=== PATIENT | female | born 1950 ===

== ENCOUNTER → 2020-06-27 08:31 | Outpatient (BNVA) | payer MEDICARE, SELFPAY | PROVIDERS: Visit Provider Hospitalist | DX: G47.33 Obstructive sleep apnea (adult) (pediatric) (principal); Z99.89 Dependence on other enabling machines and devices | CPT/HCPCS: 99212 ==

== ENCOUNTER → 2021-02-19 11:06 | Outpatient (BNVA) | payer MEDICARE, SELFPAY | PROVIDERS: PCP Family Medicine; Visit Provider Hospitalist | DX: G47.33 Obstructive sleep apnea (adult) (pediatric) (principal); Z99.89 Dependence on other enabling machines and devices | CPT/HCPCS: 99212 ==

== ENCOUNTER → 2021-06-05 10:36 | Outpatient (BNVA) | payer MEDICARE, SELFPAY | PROVIDERS: PCP Family Medicine; Visit Provider Hospitalist | DX: G47.33 Obstructive sleep apnea (adult) (pediatric) (principal); R68.2 Dry mouth, unspecified; Z99.89 Dependence on other enabling machines and devices | CPT/HCPCS: 99212 ==

== ENCOUNTER → 2021-12-10 10:20 | Outpatient (BNVA) | payer MEDICARE, SELFPAY | PROVIDERS: PCP Family Medicine; Visit Provider Hospitalist | DX: G47.33 Obstructive sleep apnea (adult) (pediatric) (principal); R68.2 Dry mouth, unspecified; Z99.89 Dependence on other enabling machines and devices | CPT/HCPCS: 99212 ==

== ENCOUNTER 2023-10-12 09:05 | Outpatient (AMB) | payer MEDICARE, SELFPAY ==
--- NOTE | 2023-10-12 09:12 | A.OFFVIS_ITS ---
Vital Signs 10/12/23 09:13 Height 5 ft 2 in Weight 190 lb BMI 34.7 Pulse 69 Pulse Source Pulse Oximeter Pulse Oximetry (%) 96 Oxygen Delivery Method Room Air Intake Visit Reasons: brando Scalp Treatment Specialist Required: No Allergies No Known Allergies Allergy (Verified 10/12/23 09:15) HPI Comments Details: The patient is a 72-year-old woman with a known history of obstructive sleep apnea. She has a very adherent to her CPAP therapy. The CPAP therapy continues to be effective in beneficial. She does use the nasal pillows. Sometimes a duly care but it does not bother her. Her his AHI is down to 0.9. Her average pressure is approximately 13. Currently her is PAP therapy set up 8-16. Therefore, I will increase the pressure up to 10 to be closer to her therapeutic window. Otherwise she is tolerating the CPAP very well. Patient denies any respiratory issues at this time. 06/05/2021 The patient is here for a pulmonary follow up visit. The patient finally received her new APAP, Airsense 11 8-16. She is using nasal pillows with chin strap. But complaing of a dry mouth. Moderate in severity. Very uncomfortable. She did get a new chin strap but not helpful. I did download the APAP and AHI 1-2. BUt avg pressure was 16cm. Therefore, I recommended a full face mask. She is going to use it. I also adjusted her pressures 8-18. Breathing has been ok. No coughing or shortness of breath. 12/10/2021 the patient is here for a pulmonary follow-up visit. Overall the patient is doing well. She did try the fullface mask but she did not tolerated. She did better with the P 10 nasal pillows in addition to the chinstrap. The chinstrap has been providing her relief from her dry mouth and also has seen improvement in her CPAP therapy. Therefore she is going to continue using it and she will need a replacement from her [employer] company. I will submit a prescription for her to be able to get her chin strap. her actual download information from the PAP therapy has been very good. Average pressure is around 11.4 cm and her AHI is down to about 1.2-2 events an hour. Therefore no additional adjustments need to be May. Patient continue with current therapy. Will follow-up in a year's time. 10/12/2023 the patient is here for a pulmonary follow-up visit. She continues to do very well with CPAP. The CPAP therapy has been affecting beneficial. She does use it every night for more than 4 hours. Her AHI is down to 0.8 events per hour which is excellent better than before. Her average pressure is around 10 cm. The patient does need sometimes go up to 15 cm. She has using a chinstrap. She is using it over the mask. And therefore the chinstrap is not anchoring down her P 10 mask. Therefore I did advise her to use it the opposite way so that way the chinstrap can hold her mask in place. Hopefully works better. We did talk about the alternative mask that will have more integrity with the head gear which would be the P 30i mask. Sometimes she feels like the machine is not giving her enough pressure. Therefore, we talked about the ramp. Her ramp is set up at 6. She can always turn off the ramp and we did go through her machine and showed her how to change adjust the ramp settings. We lifted auto for now. Her dry mouth overall is better which is reassuring. She is having some body aches and that makes her have a hard time lying in certain positions. She is going to be evaluated by Neurology for some sharp discomfort she gets in the neck. I do not believe is from the mask head gear as it is very comfortable on light. [facility] Medical History (Updated 10/12/23 @ 20:34 by Cresencio Zapata MD) Dry mouth BRANDO on CPAP Family History (Updated 06/27/20 @ 22:19 by Cresencio Zapata MD) Other BRANDO (obstructive sleep apnea) Social History (Updated 02/19/21 @ 11:36 by Priya Louis Moises) Patient Tobacco Use Status: Never used Tobacco Review of Systems Const Denies night sweats ENT Denies change in voice, Denies dry mouth, Denies lip swelling, Denies mouth pain, Reports nasal congestion, Reports nasal discharge and Denies tongue swelling Card Denies chest pain Resp Reports cough GI Denies abdominal pain Musc Reports as per HPI, Reports myalgias, Reports arthralgias and Reports joint swelling Neuro Denies Neuro-related abnormal movements Psych Denies no additional complaints Cosme/Lymph Denies easy bleeding and Denies lymphadenopathy Aller/Immun Denies lip swelling and Denies tongue swelling Physical Exam Vital Signs: Last Vital Signs Pulse 69 10/12/23 09:13 Pulse Ox 96 10/12/23 09:13 Oxygen Delivery Method Room Air 10/12/23 09:13 BMI result Body Mass Index 34.7 Const General: alert Neck Neck: Yes normal visual inspection, Yes full ROM, Yes no lymphadenopathy and Yes supple Chest Chest palpation & inspection: normal inspection of the chest Resp Effort & Inspection: normal respiratory effort and able to speak in complete sentences Auscultation: clear to auscultation bilaterally Skin General skin exam: rashes and/or lesions noted Extrem General: Yes no clubbing, cyanosis or edema Assessment & Plan Assessment & Plan (1) BRANDO on CPAP: Code(s): G47.33 - Obstructive sleep apnea (adult) (pediatric); Z99.89 - Dependence on other enabling machines and devices Category: Medical (2) Dry mouth: Comment: better Code(s): R68.2 - Dry mouth, unspecified Category: Medical Plan Continue APAP, 8-18 continue p10 mask with chin strap, consider P30i Monitor AHI F/U 12 months Coding Level of Care Code Est Pt Level 4 (61006) Diagnoses BRANDO on CPAP G47.33; Z99.89 Dry mouth R68.2 Time Spent (min) 17
[2023-10-12 09:13] VITALS: PULSE 69; O2SAT 96; BMI 34.7
== END 2023-10-12 09:42 | disposition home or self-care (01) ==
PROVIDERS: PCP Family Medicine; Visit Provider Hospitalist
DX: G47.33 Obstructive sleep apnea (adult) (pediatric) (principal); Z99.89 Dependence on other enabling machines and devices; R68.2 Dry mouth, unspecified
CPT/HCPCS: 99214

== ENCOUNTER → 2023-10-12 09:05 | Outpatient (BNVA) | payer MEDICARE, SELFPAY | PROVIDERS: PCP Family Medicine; Visit Provider Hospitalist | DX: G47.33 Obstructive sleep apnea (adult) (pediatric) (principal); R68.2 Dry mouth, unspecified; Z99.89 Dependence on other enabling machines and devices | CPT/HCPCS: 99212 ==

== ENCOUNTER 2024-05-02 12:54 | Outpatient (AMB) | payer MEDICARE, SELFPAY ==
--- NOTE | 2024-05-02 13:12 | A.OFFVIS_ITS ---
Vital Signs 05/02/24 13:15 Height 5 ft 2 in Weight 192 lb 14.472 oz BMI 35.3 BP 124/68 Blood Pressure Location Rt brachial Position Sitting Pulse 85 Pulse Source Pulse Oximeter Pulse Oximetry (%) 97 Oxygen Delivery Method Room Air Intake Visit Reasons: Dr. Rocael Salamanca left ankle surgery Allergies No Known Allergies Allergy (Verified 05/02/24 13:23) HPI Comments Details: The patient is a 73-year-old woman with a known history of obstructive sleep apnea. She has a very adherent to her CPAP therapy. The CPAP therapy continues to be effective in beneficial. She does use the nasal pillows. Sometimes a duly care but it does not bother her. Her his AHI is down to 0.9. Her average pressure is approximately 13. Currently her is PAP therapy set up 8-16. Therefore, I will increase the pressure up to 10 to be closer to her therapeutic window. Otherwise she is tolerating the CPAP very well. Patient denies any respi ratory issues at this time. 06/05/2021 The patient is here for a pulmonary follow up visit. The patient finally received her new APAP, Airsense 11 8-16. She is using nasal pillows with chin strap. But complaing of a dry mouth. Moderate in severity. Very uncomfortable. She did get a new chin strap but not helpful. I did download the APAP and AHI 1-2. BUt avg pressure was 16cm. Therefore, I recommended a full face mask. She is going to use it. I also adjusted her pressures 8-18. Breathing has been ok. No coughing or shortness of breath. 12/10/2021 the patient is here for a pulmonary follow-up visit. Overall the patient is doing well. She did try the fullface mask but she did not tolerated. She did better with the P 10 nasal pillows in addition to the chinstrap. The chinstrap has been providing her relief from her dry mouth and also has seen improvement in her CPAP therapy. Therefore she is going to continue using it and she will need a replacement from her DME company. I will submit a prescription for her to be able to get her chin strap. her actual download information from the PAP therapy has been very good. Average pressure is around 11.4 cm and her AHI is down to about 1.2-2 events an hour. Therefore no additional adjustments need to be May. Patient continue with current therapy. Will follow-up in a year's time. 10/12/2023 the patient is here for a pulmonary follow-up visit. She continues to do very well with CPAP. The CPAP therapy has been affecting beneficial. She does use it every night for more than 4 hours. Her AHI is down to 0.8 events per hour which is excellent better than before. Her average pressure is around 10 cm. The patient does need sometimes go up to 15 cm. She has using a chinstrap. She is using it over the mask. And therefore the chinstrap is not anchoring down her P 10 mask. Therefore I did advise her to use it the opposite way so that way the chinstrap can hold her mask in place. Hopefully works better. We did talk about the alternative mask that will have more integrity with the head gear which would be the P 30i mask. Sometimes she feels like the machine is not giving her enough pressure. Therefore, we talked about the ramp. Her ramp is set up at 6. She can always turn off the ramp and we did go through her machine and showed her how to change adjust the ramp settings. We lifted auto for now. Her dry mouth overall is better which is reassuring. She is having some body aches and that makes her have a hard time lying in certain positions. She is going to be evaluated by Neurology for some sharp discomfort she gets in the neck. I do not believe is from the mask head gear as it is very comfortable on light. 05/02/2024 the patient is here for pulmonary follow-up visit. Overall she is doing well from a respiratory status. She has been using her CPAP every night and the CPAP therapy has been affecting beneficial. Her AHI is down to 1. Her average pressure is around 12 cm water. Her current CPAP settings are ideal for her at this time. Her mask is also feeling well without any significant leakage. The patient does use it for more than 4 hours a night and she will continue to use it as his treating cardiovascular risk. She does have surgery plans for her ankle. The patient eyes not having any respiratory complaints at this time. From a pulmonary standpoint the patient may be able to proceed with surgery without any limitations. She is able to consent for anesthesia and for surgery at this time. She will have minimal risk for perioperative pulmonary complications which include atelectasis, hypoxia, pneumonia. [facility] Medical History (Updated 05/02/24 @ 13:27 by Cresencio Zapata MD) Dry mouth BRANDO on CPAP Family History (Updated 06/27/20 @ 22:19 by Cresencio Zapata MD) Other BRANDO (obstructive sleep apnea) Social History (Updated 02/19/21 @ 11:36 by HAROON Pete) Patient Tobacco Use Status: Never used Tobacco Review of Systems Const Denies night sweats ENT Denies change in voice, Denies dry mouth, Denies lip swelling, Denies mouth pain, Reports nasal congestion, Reports nasal discharge and Denies tongue swelling Card Denies chest pain Resp Reports cough GI Denies abdominal pain Musc Reports as per HPI, Reports myalgias, Reports arthralgias and Reports joint swelling Neuro Denies Neuro-related abnormal movements Psych Denies no additional complaints Cosme/Lymph Denies easy bleeding and Denies lymphadenopathy Aller/Immun Denies lip swelling and Denies tongue swelling Physical Exam Const General: alert Neck Neck: Yes normal visual inspection, Yes full ROM, Yes no lymphadenopathy and Yes supple Chest Chest palpation & inspection: normal inspection of the chest Resp Effort & Inspection: normal respiratory effort and able to speak in complete sentences Auscultation: clear to auscultation bilaterally Skin General skin exam: rashes and/or lesions noted Extrem General: Yes no clubbing, cyanosis or edema Assessment & Plan Assessment & Plan (1) BRANDO on CPAP: Code(s): G47.33 - Obstructive sleep apnea (adult) (pediatric); Z99.89 - Dependence on other enabling machines and devices Category: Medical (2) Dry mouth: Comment: better Code(s): R68.2 - Dry mouth, unspecified Category: Medical (3) Pre-op chest exam: Code(s): Z01.811 - Encounter for preprocedural respiratory examination Category: Medical Plan The patient at this point may be able to proceed with surgery as she has clear at this time from a pulmonary standpoint. She may proceed with anesthesia and with surgery without any limitations. She will use her CPAP after surgery. If she has a stay in the hospital she should be provided PAP therapy to using the hospital while sleeping and napping. Continue APAP, 8-18 continue p10 mask with chin strap, consider P30i F/U 12 months Coding Level of Care Code Est Pt Level 4 (25001) Diagnoses BRANDO on CPAP G47.33; Z99.89 Dry mouth R68.2 Pre-op chest exam Z01.811 Time Spent (min) 16
[2024-05-02 13:15] VITALS: BP 124/68; PULSE 85; O2SAT 97; BMI 35.3
--- OUTSIDE RECORDS SUMMARY | 2024-05-02 13:49 | XMS_ITS | Encounter Summary ---
Author Organization [facility]ly [facility] Address [address] [place] [id number] Care Team Providers Care Intake Worker Name Role Phone Uzma Garrido MD Primary Care Provider [phone] Rocael Salamanca MD Unavailable [phone] Reason for Referral * Outpatient Surgery (Routine) - Pending Review Specialty Diagnoses / Procedures Referred By Contac t Referred To Contact Orthopedic Surgery Diagnoses Pes planovalgus, acquired, left Rocael Salamanca MD [address] [place] [address] Referral ID Status Reason Start Date Expiration Date V isits Requested Visits Authorized [id number] Pending Review 04/17/2024 04/18/2025 1 1 Question Answer Primary Procedure: 99165 - TRIPLE ARHTRODESIS Additional Procedure(s): 48049 - GASTROCNEMIUS RECESSION Procedure: LEFT FOOT TRIPLE ARTHRODESIS, LEFT GASTROCNEMIUS RECESSION Surgery Date 05/19/2024 Laterality: Left Performing Location: [facility] Duration (Mins): 120 Admission: Outpatient Anesthesia: GENERAL, POPLITEAL / SAPHENOUS BLOCK Workers Comp? No Equipment: SUPINE, MINI C-ARM PA Assist: DIANNA BRANDON Encounter Details Date Type Department Care Team (Late st Contact Info) Description 04/17/2024 CC Surg Order [facility] [address] [place] [address] Rocael Salamanca MD [address] [place] [address] Pes planovalgus, acquired, left (Primary Dx) Social History Tobacco Use Types Packs/Day Years Used Date Smoking Tobacco: Never Assessed Sex and Gender Information Value Date Recorded Sex Assigned at Female 10/22/2023 11:34 AM EDT Gender Identity Female 10/22/2023 11:34 AM EDT Sexual Orientation Other 10/22/2023 11 :34 AM EDT documented as of this encounter Miscellaneous Notes * Addendum Note - Cindy Ludwig - 04/17/2024 9:31 AM ESTAddended by: CINDY LUDWIG on: 04/17/2024 11:47 AM Modules accepted: Orders documented in this encounter Plan of Treatment Upcoming Encounters Date Type Department Care Team (Latest Contact Info) Description 05/03/2024 10:15 AM EST Pre-Admission Testing [facility] [address] [facility] 2nd Floor [address] [place] [address] Margaret Guevara, VARNISHER [address] [facility] [address] [place] [address] 05/19/2024 7:30 AM EST Hospital Encounter [facility] at [address] [address] Rocael Salamanca MD [address] [place] [address] 05/19/2024 7:30 AM EST - 05/19/2024 10:00 AM EST Surgery [facility] at [address] [address] Rocael Salamanca MD [address] [place], [place] [id number] FOOT TRIPLE ARTHRODESIS 05/23/2024 1:00 PM EST Office Visit [facility] [place] [phone] Dianna Brandon, VARNISHER [address] [address] 06/06/2024 1:00 PM EST [facility] [address] [address] Rocael Salamanca MD [address] [place] [address] 06/27/2024 1:00 PM EDT Office Visit Orth[facility] [address] [address] Dianna Brandon, VARNISHER [address] [address] Scheduled Procedures Name Priority Associated Diagnoses Date/Ti me ARTHRODESIS ANKLE Pes planovalgus, acquired, left 05/19/2024 7:30 AM EST RECESSION GASTROCNEMIUS FOOT Pes planovalgus, acquired, left 05/19/2024 7:30 AM EST Scheduled Referrals Name Type Priority Associated Diagnoses Order Schedule LEFT FOOT TRIPLE ARTHRODESIS, LEFT GASTROCNEMIUS RECESSION Outpatient Referral Routine Pes planovalgus, acquired, left Ordered: 04/17/2024 documented as of this encounter Visit Diagnoses Diagnosis Pes planovalgus, acquired, left- Primary Preop examination- Primary Unspecified pre-operative examination Acquired pes planus, left BRANDO (obstructive sleep apnea) Obstructive sleep apnea (adult) (pediatric) Pes planovalgus, acquired, left documented in this encounter Care Teams Intake Worker Relationship Specialty Start Date End Date Uzma Garrido MD [address] [place], [place] [id number] PCP - General Family Medicine 11/23/23 Rocael Salamanca MD [address] [place] [id number] Surgery, Orthopedic 04/17/24 documented as of this encounter
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
--- OUTSIDE RECORDS SUMMARY | 2024-05-02 13:49 | XMS_ITS | Clinical Summary ---
Author Organization [facility] Address [address] [place] [address] Care Team Providers Care Formulator Name Role Phone Uzma Garrido MD Primary Care Provider Allergies No known active allergies Medications Medication Sig Dispensed Refills Start Date End Date Status GLUCOSAMINE-CHONDROI TIN PO Take 1 tablet by mouth daily. 0 Active Multiple Vitamin (MULTIVITAMIN PO) Take 1 capsule by mouth daily. 1 Packet that has 5 Tablets daily 0 Active CHOLECALCIFEROL PO Take 1 tablet by mouth daily. 0 Active acetaminophen (TYLENOL EXTRA STRENGTH) 500 MG tablet Take 2 tablets (1,000 mg total) by mouth every 8 (eight) hours. 30 tablet 0 03/11/2023 Active methocarbamol (ROBAXIN) 750 MG tablet Take one tab po every 6hrs prn spasm. 42 tablet 0 03/11/2023 Active oxyCODONE (ROXICODONE) 5 MG immediate release tablet Take one tabs every 4hrs as needed for pain. Hold for lethargy. May take two tabs if needed. 42 tablet 0 03/11/2023 Active senna-docusate (Senna-Plus) 8.6-50 MG Take 1 tablet by mouth 2 (two) times a day. Take while on narcotic to help prevent constipation. 30 tablet 0 03/11/2023 Active aspirin EC 81 MG tablet Take 1 tablet (81 mg total) by mouth 2 (two) times a day. 84 tablet 0 03/11/2023 Active Active Problems No known active problems Social History Tobacco Use Types Packs/Day Years Used Date Smoking Tobacco: Never Smokeless Tobacco: Never Alcohol Use Standard Drinks/Week Comments Yes 2 (1 standard drink = 0.6 oz pur e alcohol) Sex and Gender Information Value Date Recorded Sex Assigned at Female 02/19/2023 11:33 AM EST Gender Identity Female 02/19/2023 11:33 AM EST Sexual Orientation Straight 03/10/2023 9: 05 AM EST Job Start Date Occupation Industry Not on file Not on file Not on file Last Filed Vital Signs Vital Sign Reading Time Taken Comments Blood Pressure 122/61 03/12/2023 9:00 AM EST Pulse 79 03/12/2023 9:00 AM EST Temperature 37.6 ??C (99.7 ??F) 03/12/2023 9:00 AM ES T Respiratory Rate 16 03/12/2023 9:00 AM EST Oxygen Saturation 97% 03/12/2023 9:00 AM EST Inhaled Oxygen Concentration - - Weight 86.2 kg (190 lb) 03/10/2023 9:07 AM EST Height 160 cm (5' 3 ) 03/10/2023 9:07 AM EST Body Mass Index 33.66 03/10/2023 9:07 AM EST Plan of Treatment Health Maintenance Due Date Last Done Comments Hepatitis C Screening 1950 COVID-19 Vaccine (#1) 05/16/1949 Depression Screening 1960 BMI Counseling 1966 Preventative Health Evaluation 1966 DTap / Tdap / Td (1 - Tdap) 11/14/1967 Colon Cancer Screening (Colonoscopy) 1993 Shingrix-Zoster Vaccine (1 of 2) 1998 Fall Risk Assessment 2013 Osteoporosis Screening (DEXA Scan) 2013 Pneumococcal Vaccine (1 of 1 - PCV) 2013 RSV Adult > 60+ Yrs or Pregn ant (1 - 1-dose 75+ series) 11/14/2023 Influenza Vaccine (#1) 2023 01/17/2018 Hepatitis B Vaccines Aged Out No long er eligible based on patient's age to complete this topic RSV Ped < 20 months Aged Out No longe r eligible based on patient's age to complete this topic Medical Devices Implanted Type Area Tumbler Operator Device Identifier Shelf Expiration Date Model / Serial / Lot Knee Ptla Asym Tritanium 29x9 Str-[facility] [id number] - [id number] Implanted:Qty: 1 on 03/10/2023 by Yunier Garcia MD at [facility] Right: Knee [employer] [id number] 11/06/2027 5552-L-299 / / [id number] Knee Fem Bsplt W Pa Stry-Howm [id number] - [id number] Implanted:Qty: 1 on 03/10/2023 by Yunier Garcia MD at [facility] Right: Knee [employer] [id number] 02/02/2028 5517-F-302 / / [id number] Knee Insrt Trthln Sz3 13mm Stry-How [id number] - [id number] Implanted:Qty: 1 on 03/10/2023 by Yunier Garcia MD at [facility] Right: Knee [employer] [id number] 11/19/2027 5531-G-313 / / [id number] Knee Bsplt Triathlon Ti Sz 3 Stry-How [id number] 551 - [id number] Implanted:Qty: 1 on 03/10/2023 by Yunier Garcia MD at [facility] Right: Knee [employer] [id number] 12/24/2027 5536-B-300 / / [id number] Advance Directives For more information, please contact: [phone] Documents on File Type Date Recorded 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 Code Status History Code Status Date Activated Date Inactivated Comments Full Code 03/10/2023 8:33 AM 03/10/2023 10:54 AM This code status was ascertained in the following way: per living will or healthcare instructions . Care Teams Formulator Relationship Specialty Start Date End Date Uzma Garrido MD [address] [place] [address] PCP - General Family Medicine 03/08/23
--- OUTSIDE RECORDS SUMMARY | 2024-05-02 13:49 | XMS_ITS | Encounter Summary ---
Author Organization [facility] Address [address] [place] [address] Care Team Providers Care Psychology Clinician Name Role Phone Uzma Garrido MD Primary Care Provider [phone] Reason for Referral * Rehabilitation (Routine) - Pending Review Specialty Diagnoses / Procedures Referred By Contac t Referred To Contact Diagnoses Pes planovalgus, acquired, left Pain in left ankle and joints of left foot Rocael Salamanca MD [address] [place] [address] Referral ID Status Reason Start Date Expiration Date Visits Requested Visits Authorized [id number] Pending Review Support Services 04/05/2025 1 1 Question Answer Is this related to a Neurological Condition? No Comments Eval: Pre-OP for LT Triple Arthrodesis Mobility assessment patient to be NON- weight bearing for 6 weeks post op. Reason for Visit * Reason Comments Pain Pain DISCUSS SX Encounter Details Date Type Department Care Team (Late st Contact Info) Description 04/04/2024 1:00 PM EST Office Visit [facility] [place] [address] Rocael Salamanca MD [address] [place] [address] Pes planovalgus, acquired, left (Primary Dx); Pain in left ankle and joints of left foot Social History Tobacco Use Types Packs/Day Years Used Date Smoking Tobacco: Never Assessed Sex and Gender Information Value Date Recorded Sex Assigned at Female 10/22/2023 11:34 AM EDT Gender Identity Female 10/22/2023 11:34 AM EDT Sexual Orientation Other 10/22/2023 11 :34 AM EDT documented as of this encounter Progress Notes * Flores Gonzalez - 04/04/2024 1:00 PM EST Images from the original note were not included. [address] [facility] [address] [address] Encounter Date: 04/04/2024 1. Pes planovalgus, acquired, left Amb Referral to Therapy Services (PT or OT) SUPPLY DME MISC SUPPLY DME MISC 2. Pain in left ankle and joints of left foot Amb Referral to Therapy Services (PT or OT) SUPPLY DME MISC SUPPLY DME MISC Assessment & Plan Assessment: Posterior tibial tendon dysfunction Painful Pes Reasnor Valgus Gastrocnemius contracture Leelee Land is a 73 y.o. female who presents today for evaluation of her Left foot. She was last seen by me this past summer in November. She has a long standing asymmetric pes plano valgus and hind foot malalignment. The patient is a good candidate for triple arthrodesis based on clinical findings, including a partial tear of the posterior tibial tendon and inflammation in the talonavicular joint as reviewed on the MRI finding. We discussed the benefits, risks, and expected outcomes, including potential complications such as non-union, hardware irritation, and general surgical risks (e.g., wound healing problems, blood clots). The patient will undergo a mobility assessment to evaluate readiness for postoperative recovery and explore logistical solutions such as a stair chair or rollabout scooter. Preoperative preparation includes primary care clearance, bloodwork, and scheduling. Postoperatively, the patient will wear a temporary cast for one week, a hard cast for three weeks, and transition to a bootwith progressive weight-bearing starting at six weeks. Physical therapy will begin after transitioning to the boot at three weeks. Everything was discussed in detail with her and her , Abdirizak. All questions were answered thoroughly and in detail. The patient understands the recovery timeline and will schedule surgery when ready. History of Present Illness: Leelee Land is a 73 y.o. female who presents today for evaluation of her Left foot. She was last seen by me this past summer in November. She has a long standing asymmetric pes plano valgus and hind foot malalignment. She's had an MRI demonstrating posterior tibial tendon pathology and at her last visit I found her to be a reasonable candidate for triple arthrodesis and gastric recession. She has trialed an Edna brace in the interim and in the past has trialed a polyethylene AFO withoutsuccess. She reminds me that she is a retired individual with pain predominantly in the area of the left ankle and arch. The pain began in 2020 with a diagnosis of plantar fasciitis in the right foot, accompanied by right knee pain. Conservative management, including cortisone injections, was pursued initially for plantar fasciitis, which persisted for approximately a year. The condition was refractory totreatment, leading to the eventual use of shockwave therapy, although the patient delayed this treatment due to the sag-wi-[id number] cost. During this period, the patient began experiencing compensatory pain in the left ankle and swellingin the left foot, noted by Dr. Partida. The right knee ultimately required total knee replacement surgery, performed by Dr. Garcia, followed by 25 sessions of physical therapy and a week in a rehabilitation facility. Following weaning off postoperative pain medications, the left ankle pain intensified, becoming the patient???s primary concern. The pain is described as diffuse and worsens with prolonged standing, necessitating the patient to sit after extended periods. Pain is also aggravated upon waking and following a morning shower. The patient uses a Celebrex as needed for pain management but reports daily limitations in mobility, including difficulty ascending and descending stairs, requiring the use of handrails for support. Physical Exam On exam, A valgus hindfoot attitude is noted in the stance position, with too many toes visible when viewed from posterior. Prominence and uncovering of the talar head as well as asymmetric loss of medial arch height is noted. Pulses are palpable and symmetric at the dorsalis pedis and posterior tibial arteries and capillary refill is brisk. Sensation is grossly intact to light touch throughout acomplete and symmetric distribution. Muscle exam emonstrates symmetric tone and contour with 5 out of 5 strength to resisted dorsiflexion plantar flexion and eversion. Procedure Procedures Imaging Imaging Impression: No new images obtained. Past Medical History No past medical history on file. No past surgical history on file. No family history on file. Medication List Current Outpatient Medications: SUPPLY DME MISC, Edna Brace Dx: LT PPV [address] , Disp: 1 each, Rfl: 0 SUPPLY DME MISC, Walker with seat Rollabout knee scooter, Disp: 1 each, Rfl: 0 SUPPLY DME MISC, Stair lift rental needed for 6weeks Dx: Non Weight bearing, s/p LT FT triple arthrodesis, Disp: 1 each, Rfl: 0 Allergies No Known Allergies I, Flores Gonzalez, hereby attest that I have served as a scribe for Dr. Rocael Salamanca, during thisvisit. I understand the importance of accurate and timely documentation in patient care and confirm that all information recorded during the consulation was completed to the best of my ability under the supervision of Dr. Jadyn Salamanca MD documented in this encounter Plan of Treatment Upcoming Encounters Date Type Department Care Team (Latest Contact Info) Description 05/03/2024 10:15 AM EST Pre-Admission Testing [facility] [address] [facility] 2nd Floor [address] [place] [address] FernandojodiMargaret, CONTENT STRATEGIST 85 [facility] [address] [place] [address] 05/19/2024 7:30 AM EST Hospital Encounter [facility] [place] at [address] [phone] Rocael Salamanca MD [address] [place] [address] 05/19/2024 7:30 AM EST - 05/19/2024 10:00 AM EST Surgery [facility] [place] at [address] [phone] Rocael Salamanca MD [address] [place] [address] FOOT TRIPLE ARTHRODESIS 05/23/2024 1:00 PM EST [facility] [address] [address] Bertha Brandon, CONTENT STRATEGIST [address] [address] 06/06/2024 1:00 PM EST [facility] [address] [address] Rocael Salamanca MD [address] [place] [address] 06/27/2024 1:00 PM EDT [facility] [address] [address] Bertha Brandon, CONTENT STRATEGIST [address] [address] Scheduled Procedures Name Priority Associated Diagnoses Date/Ti me ARTHRODESIS ANKLE Pes planovalgus, acquired, left 05/19/2024 7:30 AM EST RECESSION GASTROCNEMIUS FOOT Pes planovalgus, acquired, left 05/19/2024 7:30 AM EST Scheduled Referrals Name Type Priority Associated Diagnoses Orde r Schedule Amb Referral to Therapy Services (PT or OT) Outpatient Referral Routine Pes planovalgus, acquired, left Pain in left ankle and joints of left foot Ordered: 04/04/2024 documented as of this encounter Visit Diagnoses Diagnosis Pes planovalgus, acquired, left- Primary Pain in left ankle and joints of left foot Preop examination- Primary Unspecified pre-operative examination Acquired pes planus, left BRANDO (obstructive sleep apnea) Obstructive sleep apnea (adult) (pediatric) Pes planovalgus, acquired, left documented in this encounter Care Teams Psychology Clinician Relationship Specialty Start Date End Date Uzma Garrido MD [address] [place] [address] PCP - General Family Medicine 11/23/23 documented as of this encounter
--- OUTSIDE RECORDS SUMMARY | 2024-05-02 13:49 | XMS_ITS ---
Author Name [facility] Organization Unknown Results Test Name/Text Value Interpretation Date Range Source HGB BLD MCNC 11.1g/dL Below low normal 12.5 - 16 [facility] HCT VFR BLD AUTO 34.7% Below low normal 37 - 47 [facility] Problems Problem Status Onset Date Problem Type Date of Resoluti on Source Pain in left ankle and joints of left foot active EncounterDiagnosisAct [facility] Pes planovalgus, acquired, left active EncounterDiagnosisAct [facility] T
--- OUTSIDE RECORDS SUMMARY | 2024-05-02 13:49 | XMS_ITS | Clinical Summary ---
Author Organization [facility] Address [address] [place] [address] Care Team Providers Care Sociology Teacher Name Role Phone Uzma Garrido MD Primary Care Provider [phone] Rocael Salamanca MD Unavailable [phone] Cresencio Zapata MD Unavailable [phone] Allergies No known active allergies Medications Medication Sig Dispensed Refills Start Date End Date Status SUPPLY DME MISCIndications:P ain in left ankle and joints of left foot,Pes planovalgus, acquired, left Edna Brace Dx: LT PPV [address] 1 each 11/23/2023 Active SUPPLY DME MISCIndications:P es planovalgus, acquired, left,Pain in left ankle and joints of left foot Walker with seat Rollabout knee scooter 1 each 04/04/2024 Active SUPPLY DME MISCIndications:P es planovalgus, acquired, left,Pain in left ankle and joints of left foot Stair lift rental needed for 6weeks Dx: Non Weight bearing, s/p LT FT triple arthrodesis 1 each 04/04/2024 Active acetaminophen (TYLENOL) 500 MG tablet Take 2 tablets (1,000 mg total) by mouth 3 times daily (every 8 hours). 03/11/2023 Active Multiple Vitamin (multivitamin) capsule Take 1 capsule by mouth daily. Active celeCOXIB (CeleBREX) 100 MG capsule Take 1 capsule (100 mg total) by mouth 2 (two) times a day. Active Vitamin D3 (CHOLECALCIFEROL) 50 MCG (2000 UT) tablet Take 1 tablet (2,000 Units total) by mouth daily. Active Glucos-Chondroit- Hyaluron-MSM (GLUCOSAMINE CHONDROITIN JOINT PO) Take 1 tablet by mouth daily. Active aspirin enteric coated (ECOTRIN LOW STRENGTH) 81 MG EC tablet Take 1 tablet (81 mg total) by mouth 2 times a day. 03/11/2023 04/27/2024 Discontinued (Med List Clean-up/Old Med - No E-Cancel/No AVS) methocarbamol (ROBAXIN) 750 MG tablet Take 1 tablet (750 mg total) by mouth 3 (three) times a day as needed. 03/11/2023 04/27/2024 Discontinued (Med List Clean-up/Old Med - No E-Cancel/No AVS) oxyCODONE (ROXICODONE) 5 MG immediate release tablet Take 1 tablet (5 mg total) by mouth 4 times daily (every 6 hours) as needed. 03/11/2023 04/27/2024 Discontinu ed (Med List Clean-up/Old Med - No E-Cancel/No AVS) senna-docusate (SENNA-S) 8.6-50 MG Take 1 tablet by mouth daily. 03/11/2023 04/27/2024 Discontinued (Med List Clean-up/Old Med - No E-Cancel/No AVS) Active Problems Problem Noted Date Diagnosed Date BRANDO (obstructive sleep apnea) 04/26/2024 Encounters Date Type Department Care Team Description 04/27/2024 Travel 04/17/2024 CC Surg [place] [facility] [address] Rocael Salamanca MD Pes planovalgus, acquired, left (Primary Dx) 04/04/2024 1:00 PM EST Office [place] [address] Rocael Salamanca MD Pes planovalgus, acquired, left (Primary Dx); Pain in left ankle and joints of left foot from Last 3 Months Social History Tobacco Use Types Packs/Day Years Used Date Smoking Tobacco: Never Smokeless Tobacco: Never Tobacco Cessation:Counseling Given: Not Answered Alcohol Use Standard Drinks/Week Comments Yes 2 (1 standard drink = 0.6 oz pure alcohol) Advised to avoid 2 wks prior to sx AUDIT-C Answer Date Recorded Q1: How often do you have a drink containing alc ohol? 2-3 times a week 04/27/2024 Q2: How many drinks containi ng alcohol do you have on a typical day when you are drinking? 1 or 2 04/27/2024 Q3: How often do you have si x or more drinks on one occasion? Never 04/27/2024 Sex and Gender Information Value Date Recorded Sex Assigned at Female 10/22/2023 11:34 AM EDT Gender Identity Female 10/22/2023 11:34 AM EDT Sexual Orientation Other 10/22/2023 11 :34 AM EDT Last Filed Vital Signs Vital Sign Reading Time Taken Comments Blood Pressure - - Pulse - - Temperature - - Respiratory Rate - - Oxygen Saturation - - Inhaled Oxygen Concentration - - Weight 86.2 kg (190 lb) 04/27/2024 4:08 PM EST Height 160 cm (5' 3 ) 04/27/2024 4:08 PM EST Body Mass Index 33.66 04/27/2024 4:08 PM EST Plan of Treatment Upcoming Encounters Date Type Department Care Team (Latest Contact Info) Description 05/03/2024 10:15 AM EST Pre-Admission Testing [facility] [place] [address] [facility] 2nd [address] [place] [phone] Margaret Guevara APRN 85 [facility] 923 [place] [address] 05/19/2024 7:30 AM EST Hospital Encounter [facility] [place] at [address] [phone] Rocael Salamanca MD [address] [place] [address] 05/19/2024 7:30 AM EST - 05/19/2024 10:00 AM EST Surgery [facility] [place] at [address] [phone] Rocael Salamanca MD 7 [place] [address] FOOT TRIPLE ARTHRODESIS 05/23/2024 1:00 PM EST [facility] [address] [address] Bertha Brandon, COLOR WORKER [address] [address] 06/06/2024 1:00 PM EST [facility] [address] [address] Rocael Salamanca MD [address] [place] [address] 06/27/2024 1:00 PM EDT [facility] [address] [address] Bertha Brandon, COLOR WORKER [address] [place] [address] Scheduled Procedures Name Priority Associated Diagnoses Date/Ti me ARTHRODESIS ANKLE Pes planovalgus, acquired, left 05/19/2024 7:30 AM EST RECESSION GASTROCNEMIUS FOOT Pes planovalgus, acquired, left 05/19/2024 7:30 AM EST Health Maintenance Due Date Last Done Comments Hepatitis C Virus Screening 1950 DTaP/Tdap/Td Vaccines (1 - Tdap) 11/14/1967 Mammogram 1988 Colonoscopy 1993 Pneumococcal Vaccines 50+ (1 of 1 - PCV) 1998 Zoster (Shingles) Vaccine (1 of 2) 1998 DXA Bone Density (Females,Ag es 65 and older) 2013 RSV Vaccine 60 years and old er and Patients (1 - 1-dose 75+ series) 11/14/2023 COVID-19 Vaccine (2 - 2023-2 5 season) 2023 12/25/2022 Influenza Vaccine Completed 12/30/2023 Hepatitis B Vaccines Aged Out No long er eligible based on patient's age to complete this topic Care Teams Sociology Teacher Relationship Specialty Start Date End Date Uzma Garrido MD [address] [place] [address] PCP - General Family Medicine 11/23/23 Rocael Salamanca MD [address] [place] [address] Surgery, Orthopedic 04/17/24 Cresencio Zapata MD [address] [place] [address] Medicine Hospitalist 04/27/24
--- OUTSIDE RECORDS SUMMARY | 2024-05-02 13:49 | XMS_ITS | Encounter Summary ---
Author Organization [facility] Address [address] [place] [address] Care Team Providers Care Senior Art Director Name Role Phone Uzma Garrido MD Primary Care Provider [phone] Rocael Salamanca MD Unavailable [phone] Cresencio Zapata MD Unavailable [phone] Encounter Details Date Type Department Care Team (Latest Contact Info) Description 04/27/2024 Travel Social History Tobacco Use Types Packs/Day Years [...] AM EDT documented as of this encounter Plan of Treatment Upcoming Encounters Date Type Department Care Team (Latest Contact Info) Description 05/03/2024 10:15 AM EST Pre-Admission Testing [facility] [place] [address] [place] [address] 2nd [address] [place] [address] Margaret Guevara TEXTILE SCREEN MAKER [address] [address] 05/19/2024 7:30 AM EST Hospital Encounter [facility] [place] at [address] [phone] Rocael Salamanca MD 7 [place] [address] 05/19/2024 7:30 AM EST - 05/19/2024 10:00 AM EST Surgery [facility] [place] at [address] [phone] Rocael Salamanca MD [address] [place] [address] FOOT TRIPLE ARTHRODESIS 05/23/2024 1:00 PM EST [facility] [address] [address] Bertha Brandon, BOBBI [address] [address] 06/06/2024 1:00 PM EST [facility] [address] [address] Rocael Salamanca MD 7 [place] [address] 06/27/2024 1:00 PM EDT [facility] [address] [address] Bertha Brandon APRN [address] [address] Scheduled Procedures Name Priority Associated Diagnoses Date/Ti me ARTHRODESIS ANKLE Pes planovalgus, acquired, left 05/19/2024 7:30 AM EST RECESSION GASTROCNEMIUS FOOT Pes planovalgus, acquired, left 05/19/2024 7:30 AM EST documented as of this encounter Visit Diagnoses Not on filedocumented in this encounter Care Teams Senior Art Director Relationship Specialty Start Date End Date Uzma Garrido MD [address] [address] PCP - General Family Medicine 11/23/23 Rocael Salamanca MD [address] [place] [address] Surgery, Orthopedic 04/17/24 Cresencio Zapata MD [address] [place] [address] Medicine Hospitalist 04/27/24 documented as of this encounter
== END 2024-05-02 13:51 | disposition home or self-care (01) ==
PROVIDERS: PCP Family Medicine; Visit Provider Hospitalist
DX: G47.33 Obstructive sleep apnea (adult) (pediatric) (principal); Z99.89 Dependence on other enabling machines and devices; R68.2 Dry mouth, unspecified; Z01.811 Encounter for preprocedural respiratory examination
CPT/HCPCS: 99214

== ENCOUNTER → 2024-05-02 12:54 | Outpatient (BNVA) | payer MEDICARE, SELFPAY | PROVIDERS: PCP Family Medicine; Visit Provider Hospitalist | DX: Z01.811 Encounter for preprocedural respiratory examination (principal); G47.33 Obstructive sleep apnea (adult) (pediatric); R68.2 Dry mouth, unspecified; Z99.89 Dependence on other enabling machines and devices | CPT/HCPCS: 99212 ==

== ENCOUNTER 2024-12-26 13:54 | Outpatient (AMB) | payer MEDICARE, SELFPAY ==
--- OUTSIDE RECORDS SUMMARY | 2024-09-30 05:58 | XMS_ITS ---
Author Organization [facility] Address [address] [place] [phone] Care Team Providers Care Manager Validation Name Role Phone DUNIA UMAÑA Primary Care Provider REASON FOR VISIT Appointment for 10/03/24 situation--Will keep this appointment Encounters Encounter Location Date Provider Diagnosis [address] [phone] 09/30/2024 DUNIA UMAÑA PLAN OF TREATMENT Next Appt Details Provider Name:NURSING LUZ Sawyer, 10/23/2025 09:30:00 AM, [address] [place] [address], [phone], Provider Name:DUNIA WEST, 10/23/2025 10:00:00 AM, [address] [place] [address], [phone],
--- OUTSIDE RECORDS SUMMARY | 2024-10-03 04:30 | XMS_ITS ---
Author Organization [facility] Address [address] [place] [phone] Care Team Providers Care E Business Project Manager Name Role Phone DUNIA UMAÑA Primary Care Provider [phone] [facility] [phone] REASON FOR VISIT N/37/AWV Encounters Encounter Location Date Provider Diagnosis [address] [address] 10/03/2024 [place]SING [place] PLAN OF TREATMENT Next Appt Details Provider Name:JUNIOR Sawyer, 10/23/2025 09:30:00 AM, [address] [place] [address], [phone], Provider Name:DUNIA WEST, 10/23/2025 10:00:00 AM, [address] [place] [address], [phone],
--- OUTSIDE RECORDS SUMMARY | 2024-10-03 05:00 | XMS_ITS ---
Author Organization [facility] Address [address] [place] [phone] Care Team Providers Care Farmworker Rice Name Role Phone DUNIA UMAÑA Primary Care Provider REASON FOR VISIT AWV MEDICATIONS Medication SIG (Take, Route, Frequency, Duration) Notes Start Date End Date Status Tylenol Extra Strength 500 MG 1 tablet as needed Orally every 6 hrs Active CeleBREX 200 MG 1 capsule with food Orally Once a day prn Active Multivitamin - 1 cap(s) orally QD-maint Active Calcium 500 + D3 500-5 MG-MCG 2 tablets with a meal Orally Once a day for 30 day(s) Active CPAP . Active CPAP Mask Active SOCIAL HISTORY Tobacco Use: Social History Observation Description Date Details (start date - stop date) Never Smoker NA - NA Sex Assigned At : Social History Observation Description Sex Assigned At Unknown Smoking Question Answer Notes Are you a: never smoker Alcohol Screen Question Answer Notes Did you have a drink contain ing alcohol in the past year? Yes How often did you have a dri nk containing alcohol in the past year? Two to four times a month (2 points) How many drinks did you have on a tpical day when you were drinking in the past year? 1 or 2 (0 points) How often did you have six o r more drinks on one occassion in the past year? Never (0 points) Points 2 Interpretation Negative Section Notes: never smoker VITAL SIGNS Height 62 in 10/03/2024 Weight 193 lbs 10/03/2024 Blood pressure systolic 130 mm Hg 10/04/19 25 Blood pressure diastolic 78 mm Hg 025 BMI 35.30 kg/m2 10/03/2024 Encounters Encounter Location Date Provider Diagnosis [facility] [address] [place] [id number] 10/03/2024 DUNIA LEEROY Annual physical exam Z00.00 ; Pure hypercholesterolemia E78.00 ; Prediabetes R73.03 ; Low vitamin D level E55.9 and Menopause Z78.0 ASSESSMENTS Encounter Date Diagnosis Assessment Notes Treatment Notes Treatment Clinical Notes Section Notes 10/03/2024 Annual physical exam (ICD-10 - Z00.00) well female physical. Up to date on all appropriate screenings. Follow up in 1 year for next physical 10/03/2024 Pure hypercholesterolemia (ICD-10 - E78.00) Previously slightly elevated. Will recheck today and follow-up on the results. Will modify management if required. 10/03/2024 Prediabetes (ICD-10 - R73.03) 10/03/2024 Low vitamin D level (ICD-10 - E55.9) 10/03/2024 Menopause (ICD-10 - Z78.0) Patient given order to book on her own. PLAN OF TREATMENT Treatment Notes Assessment Notes Annual physical exam well female physica l. Up to date on all appropriate screenings. Follow up in 1 year for next physical Pure hypercholesterolemia Previously sli ghtly elevated. Will recheck today and follow-up on the results. Will modify management if required. Menopause Patient given order to book on her own. Next Appt Details Follow Up: 1 Year awe, give dexa order, Reason: Provider Name:JUNIOR Sawyer, 10/23/2025 09:30:00 AM, [address] [place] [address], [phone], Provider Name:DUNIA WEST, 10/23/2025 10:00:00 AM, [address] [place] [address], [phone], Progress Notes * Examination Category Sub-Category Detail Notes Category Not es General Examination HEENT: TMs and kalin ls normal, neck supple. no palpable cervical LAD , no thyromegally or masses, neck is supple, no carotid bruits. No oropharyngeal lesions visualized on exam Heart: RRR, no murmurs, cli cks or rubs, normal S1S2 Lungs: clear to auscultatio n, with good air entry bilaterally Abdomen: soft, non tender/non distended, normal active bowel sounds, no hepatosplenomegaly, no masses palpated General Appearance pleasant, no apparen t distress, well built and nourished Neuro CN 2-12 intact, silvia r 5/5 bilaterally proximally and distally in all 4 extremities, gait normal, DTRs 1-2+ in all 4 exremities Psych: alert, oriented X 3, affect normal History and Physical Notes * HPI (History of Present Illness) Category Sub-Category Detail Notes Category Not es General Patient presents for her physical Pt is not exercsing regularly. counselled that she should be getting at least 150 minutes of moderate aerobic exercise weekly. She should find an exercise other than walking that she can handle with her ankle problem. patient sees dentist every 6 months Patient sees eye doctor yearly Had ankle fusion with Dr Mccain in may. still is not walking comfortably. intermittent vertigo.very infrequent. [facility] apt [facility]. sharp jabbing pain left breast occured over 10 minutes. each pain was instantaneous last week. nonexertional, no associated symptoms. had normal anitra recently. Depression Screening PHQ-2 (2015 Edition) Little interest or pleasure in doing things?: Not at all Feeling down, depressed, or hopeless?: N ot at all Total Score: 0
--- OUTSIDE RECORDS SUMMARY | 2024-10-04 17:25 | XMS_ITS ---
Author Organization [facility] Address [address] [place] [phone] Care Team Providers Care Roaster Supervisor Name Role Phone DUNIA UMAÑA Primary Care Provider REASON FOR VISIT Add lab PROBLEMS Problem Type ICD Code Onset Dates Problem Status W/U Status Risk SNOMED Code Notes Problem Hypercalcemia (E83.52) Active confirmed 54010112 Encounters Encounter Location Date Provider Diagnosis [address] [address] 10/04/2024 DUNIA UMAÑA Hypercalcemia E83.52 ASSESSMENTS Encounter Date Diagnosis Assessment Notes Treatment Notes Treatment Clinical Notes Section Notes 10/04/2024 Hypercalcemia (ICD-10 - E83.52) PLAN OF TREATMENT Future Test Test Name Order Date Albumin-[id number] 10/04/2024 Next Appt Details Provider Name:JUNIOR Sawyer, 10/23/2025 09:30:00 AM, [address] [place] [address], [phone], Provider Name:DUNIA WEST, 10/23/2025 10:00:00 AM, [address] [place] [address], [phone],
--- OUTSIDE RECORDS SUMMARY | 2024-10-09 16:36 | XMS_ITS ---
Author Organization [facility] Address [address] [place] [phone] Care Team Providers Care Rn First Assistant Name Role Phone DUNIA UMAÑA Primary Care Provider REASON FOR VISIT bone density Encounters Encounter Location Date Provider Diagnosis [address] [phone] 10/09/2024 DUNIA UMAÑA PLAN OF TREATMENT Next Appt Details Provider Name:NURSING LUZ Sawyer, 10/23/2025 09:30:00 AM, [address] [place] [address], [phone], Provider Name:DUNIA WEST, 10/23/2025 10:00:00 AM, [address] [place] [address], [phone],
[2024-12-26 14:12] VITALS: BP 158/88; PULSE 76; O2SAT 98; BMI 36.1
--- NOTE | 2024-12-26 14:12 | A.OFFVIS_ITS ---
Vital Signs 12/26/24 14:12 Height 5 ft 2 in Weight 197 lb 5.019 oz BMI 36.1 BP 158/88 H Blood Pressure Location Lt brachial Position Sitting Pulse 76 Pulse Source Pulse Oximeter Pulse Oximetry (%) 98 Oxygen Delivery Method Room Air Intake Visit Reasons: Obstructive sleep apnea Racebook Writer Required: No Accompanied by: Self / Same As Patient Allergies No Known Allergies Allergy (Verified 12/26/24 14:19) HPI Comments Details: The patient is a 74-year-old woman with a known history of obstructive sleep apnea. She has a very adherent to her CPAP therapy. The CPAP therapy continues to be effective in beneficial. She does use the nasal pillows. Sometimes a duly care but it does not bother her. Her his AHI is down to 0.9. Her average pressure is approximately 13. Currently her is PAP therapy set up 8-16. Therefore, I will increase the pressure up to 10 to be closer to her therapeutic window. Otherwise she is tolerating the CPAP very well. Patient denies any respiratory issues at this time. 06/05/2021 The patient is here for a pulmonary follow up visit. The patient finally received her new APAP, Airsense 11 8-16. She is using nasal pillows with chin strap. But complaing of a dry mouth. Moderate in severity. Very uncomfortable. She did get a new chin strap but not helpful. I did download the APAP and AHI 1-2. BUt avg pressure was 16cm. Therefore, I recommended a full face mask. She is going to use it. I also adjusted her pressures 8-18. Breathing has been ok. No coughing or shortness of breath. 12/10/2021 the patient is here for a pulmonary follow-up visit. Overall the patient is doing well. She did try the fullface mask but she did not tolerated. She did better with the P 10 nasal pillows in addition to the chinstrap. The chinstrap has been providing her relief from her dry mouth and also has seen improvement in her CPAP therapy. Therefore she is going to continue using it and she will need a replacement from her DME company. I will submit a prescription for her to be able to get her chin strap. her actual download information from the PAP therapy has been very good. Average pressure is around 11.4 cm and her AHI is down to about 1.2-2 events an hour. Therefore no additional adjustments need to be May. Patient continue with current therapy. Will follow-up in a year's time. 10/12/2023 the patient is here for a pulmonary follow-up visit. She continues to do very well with CPAP. The CPAP therapy has been affecting beneficial. She does use it every night for more than 4 hours. Her AHI is down to 0.8 events per hour which is excellent better than before. Her average pressure is around 10 cm. The patient does need sometimes go up to 15 cm. She has using a chinstrap. She is using it over the mask. And therefore the chinstrap is not anchoring down her P 10 mask. Therefore I did advise her to use it the opposite way so that way the chinstrap can hold her mask in place. Hopefully works better. We did talk about the alternative mask that will have more integrity with the head gear which would be the P 30i mask. Sometimes she feels like the machine is not giving her enough pressure. Therefore, we talked about the ramp. Her ramp is set up at 6. She can always turn off the ramp and we did go through her machine and showed her how to change adjust the ramp settings. We lifted auto for now. Her dry mouth overall is better which is reassuring. She is having some body aches and that makes her have a hard time lying in certain positions. She is going to be evaluated by Neurology for some sharp discomfort she gets in the neck. I do not believe is from the mask head gear as it is very comfortable on light. 05/02/2024 the patient is here for pulmonary follow-up visit. Overall she is doing well from a respiratory status. She has been using her CPAP every night and the CPAP therapy has been affecting beneficial. Her AHI is down to 1. Her average pressure is around 12 cm water. Her current CPAP settings are ideal for her at this time. Her mask is also feeling well without any significant leakage. The patient does use it for more than 4 hours a night and she will continue to use it as his treating cardiovascular risk. She does have surgery plans for her ankle. The patient eyes not having any respiratory complaints at this time. From a pulmonary standpoint the patient may be able to proceed with surgery without any limitations. She is able to consent for anesthesia and for surgery at this time. She will have minimal risk for perioperative pulmonary complications which include atelectasis, hypoxia, pneumonia. 12/26/2024 the patient is here for pulmonary follow-up visit. Overall the patient has been doing well. She has been tolerating the CPAP. CPAP therapy has been affecting beneficial she does use it for more than 4 hours a night. She actually averages around 7. Her average pressure is between 13 and 16 cm. Sometimes she feels like the pressure is too low. Therefore we did a just the machine starting with a low pressure of 9 and a maximum pressure of 18. We also disabled the ramp. She does use nasal pillows with a chinstrap and she actually does well without any significant air leakage. She will continue to use that. In the meantime her blood work pressure was elevated today. She is having a lot of pain from a surgery of her left ankle that is not healing well. She has a bone stimulator in. We did talk about a low-sodium diet. She is going to work on that. In the meantime she will continue to use her PAP therapy as it is helpful for her cardiovascular risk factors. The patient will return in a year's time. If she has any issues prior to that she can always call for further recommendations. [facility] Medical History (Updated 05/02/24 @ 13:27 by Cresencio Zapata MD) Dry mouth BRANDO on CPAP Family History (Updated 06/27/20 @ 22:19 by Cresencio Zapata MD) Other BRANDO (obstructive sleep apnea) Social History Patient Tobacco Use Status: Never used Tobacco Review of Systems Const Denies night sweats ENT Denies change in voice, Denies dry mouth, Denies lip swelling, Denies mouth pain, Reports nasal congestion, Reports nasal discharge and Denies tongue swelling Card Denies chest pain Resp Reports cough GI Denies abdominal pain Musc Reports as per HPI, Reports myalgias, Reports arthralgias and Reports joint swelling Neuro Denies Neuro-related abnormal movements Psych Denies no additional complaints Cosme/Lymph Denies easy bleeding and Denies lymphadenopathy Aller/Immun Denies lip swelling and Denies tongue swelling Physical Exam Vital Signs: Last Vital Signs Pulse 76 12/26/24 14:12 BP 158/88 H 12/26/24 14:12 Pulse Ox 98 12/26/24 14:12 Oxygen Delivery Method Room Air 12/26/24 14:12 BMI result Body Mass Index 36.1 Const General: alert Neck Neck: Yes normal visual inspection, Yes full ROM, Yes no lymphadenopathy and Yes supple Chest Chest palpation & inspection: normal inspection of the chest Resp Effort & Inspection: normal respiratory effort and able to speak in complete sentences Auscultation: clear to auscultation bilaterally Cardio Heart sounds: S1 normal heart sound present and S2 normal heart sound present GI Palpation (GI): Soft to palpation Skin General skin exam: no rashes or lesions noted Extrem General: Yes no clubbing, cyanosis or edema Assessment & Plan Assessment & Plan (1) BRANDO on CPAP: Code(s): G47.33 - Obstructive sleep apnea (adult) (pediatric); Z99.89 - Dependence on other enabling machines and devices Category: Medical (2) Dry mouth: Comment: better Code(s): R68.2 - Dry mouth, unspecified Category: Medical Plan Continue APAP, adjusted 8-18 to 9-18 continue p10 mask with chin strap, consider P30i F/U 12 months Coding Level of Care Code Est Pt Level 4 (06196) Complex EM visit Add On G2211 Diagnoses BRANDO on CPAP G47.33; Z99.89 Dry mouth R68.2 Time Spent (min) 17
--- OUTSIDE RECORDS SUMMARY | 2024-12-26 17:08 | XMS_ITS ---
Author Name [facility] Organization Unknown Results Test Name/Text Value Interpretation Date Range Source POC Glucose 107.0 mg/dL Above high normal 05/19/2024 65 - 99 [facility] Result Not Detected Normal 05/03/2024 - [facility] Transferrin SerPl-mCnc 264.0 mg/dL Normal 05/03/2024 200 - 360 [facility] CO2 SerPl-sCnc 26.0 mmol/L Normal 05/03/2024 22 - 33 HH CCT GFR/BSA.pred SerPlBld HPY-BFZ-VvZGip 77.0 Normal 05/03/2024 59 - [facility] BUN SerPl-mCnc 18.0 mg/dL Normal 05/03/2024 8 - [address] Anion Gap Bld-sCnc 11.0 Normal 05/03/2024 7 - 17 [facility] Potassium SerPl-sCnc 4.2 mmol/L Normal 05/03/2024 3.4 - 5 .3 [facility] Sodium SerPl-sCnc 142.0 mmol/L Normal 05/03/2024 136 - 14 5 [facility] Chloride SerPl-sCnc 105.0 mmol/L Normal 05/03/2024 98 - 1 07 [facility] BUN/Creat SerPl 23.0 Ratio Normal 05/03/2024 10 - 25 HH CCT Creat SerPl-mCnc 0.8 mg/dL Normal 05/03/2024 0.4 - 1.1 HH CCT Calcium SerPl-mCnc 9.9 mg/dL Normal 05/03/2024 8.7 - 10.5 [facility]CT Glucose SerPl-mCnc 98.0 mg/dL Normal 05/03/2024 65 - 99 [facility] Prealb SerPl-mCnc 21.0 mg/dL Normal 05/03/2024 20 - 40 [facility] Hgb A1c MFr Bld 6.1 % Above high normal 05/03/2024 - 5.7 [facility] Est. average glucose Bld gHb Est-mCnc 128.0 mg/dL Normal 05/03/2024 [facility] MCV RBC Auto 95.0 fL Normal 05/03/2024 80 - 100 [facility] Basophils/leuk NFr Bld Auto 0.7 % Normal 05/03/2024 [facility] Neutrophils num Bld Auto 4.17 Thou/uL Normal 05/03/2024 2 - 7.5 [facility] WBC num Bld Auto 7.1 Thou/uL Normal 05/03/2024 4 - 11 [facility] Monocytes/leuk NFr Bld Auto 6.5 % Normal 05/03/2024 [facility] Imm Granulocytes/leuk NFr Bld Auto 0.1 % Normal 05/03/2024 [facility] Hct VFr Bld Auto 39.7 % Normal 05/03/2024 35 - 47 HH CCT MCH RBC Qn Auto 29.8 pg Normal 05/03/2024 27 - [address] RBC num Bld Auto 4.16 Mil/uL Normal 05/03/2024 4 - 5.4 [facility] Basophils num Bld Auto 0.05 Thou/uL Normal 05/03/2024 0 - 0.2 [facility] Platelet num Bld Auto 342.0 Thou/uL Normal 05/03/2024 150 - 450 [facility] RDW RBC Auto-Rto 12.8 % Normal 05/03/2024 11.5 - 14.5 [facility] Lymphocytes/leuk NFr Bld Auto 32.1 % Normal 05/03/2024 [facility] Lymphocytes num Bld Auto 2.27 Thou/uL Normal 05/03/2024 1.5 - 4.5 [facility] Eosinophil/leuk NFr Bld Auto 1.6 % Normal 05/03/2024 [facility] Hgb Bld-mCnc 12.4 g/dL Normal 05/03/2024 11.7 - 15.7 HHCC T Monocytes num Bld Auto 0.46 Thou/uL Normal 05/03/2024 0.2 - 1.5 [facility] PMV Bld Auto 8.8 fL Normal 05/03/2024 7.5 - 12.5 H[facility]CT MCHC RBC Auto-mCnc 31.2 g/dL Normal 05/03/2024 30 - 36 [facility] Eosinophil num Bld Auto 0.11 Thou/uL Normal 05/03/2024 0 - 0.7 [facility] Imm Granulocytes num Bld Auto 0.01 Thou/uL Normal 05/03/2024 0 - 0.1 [facility] Neutrophils/leuk NFr Bld Auto 59.0 % Normal 05/03/2024 [facility] HGB BLD MCNC 11.1 g/dL Below low normal 03/11/2023 12.5 - 16 [facility] HCT VFR BLD AUTO 34.7 % Below low normal 03/11/2023 37 - 47 [facility] History of Medication Use Medication Directions Dispensed Refills Start Date End Date Stat celeCOXIB (CeleBREX) 200 MG capsule Take 1 capsule (200 mg total) by mouth 2 (two) times a day. 07/25/2024 active acetaminophen (TYLENOL) 500 MG tablet Take 1 tablet (500 mg total) by mouth 4 times daily (every 6 hours) as needed for mild pain or moderate pain. 05/19/2024 active aspirin enteric coated (ECOTRIN LOW STRENGTH) 81 MG EC tablet Take 1 tablet (81 mg total) by mouth every 12 hours. 05/19/2024 active methocarbamol (ROBAXIN) 500 MG tablet Take 1 tablet (500 mg total) by mouth 2 (two) times a day as needed for muscle spasms. 05/19/2024 active oxyCODONE (ROXICODONE) 5 MG immediate release tablet Take 1 tablet (5 mg total) by mouth 4 times daily (every 6 hours) as needed for severe pain. Max Daily Amount: 20 mg 05/19/2024 active acetaminophen (TYLENOL) 500 MG tablet Take 2 tablets (1,000 mg total) by mouth 3 times daily (every 8 hours). 03/11/2023 active celeCOXIB (CeleBREX) 100 MG capsule Take 1 capsule (100 mg total) by mouth 2 (two) times a day. active Ugoezi-Hdcvduqyg-Qkbog rroy-MSM (GLUCOSAMINE CHONDROITIN JOINT PO) Take 1 tablet by mouth daily. active Multiple Vitamin (multivitamin) capsule Take 1 capsule by mouth daily. active Vitamin D3 (CHOLECALCIFEROL) 50 MCG (2000 UT) tablet Take 1 tablet (2,000 Units total) by mouth daily. active Problems Problem Status Onset Date Problem Type Date of Resoluti on Source Obesity (BMI 30-39.9) active 2024-05-04 ProblemAct [facility] Pre-diabetes active 2024-05-04 [facility] BRANDO (obstructive sleep apnea) active 2024-04-26 ProblemAct [facility] Pes planovalgus, acquired, left active En[facility]DiagnosisAct [facility] Elevated blood pressure reading in office without diagnosis of hypertension active 2024-05-04 ProblemAct [facility] Pain in left ankle and joints of left foot active [facility] Encounters Encounter Type Encounter Reason Primary Diagnosis Location Date Ambulatory Pain Pain [facility] 10/31/2024 Ambulatory [facility] 10/17/2024 Ambulatory Pain in left ankle and joints of left foot Pain in left ankle and joints of left foot [facility] 10/17/2024 Ambulatory [facility] 08/15/2024 Ambulatory Pain in left ankle and joints of left foot Pain in left ankle and joints of left foot [facility] 08/15/2024 Ambulatory [facility] 07/25/2024 Ambulatory Pain in left ankle and joints of left foot Pain in left ankle and joints of left foot [facility] 07/25/2024 Ambulatory [facility] 06/27/2024 Ambulatory Pain in left ankle and joints of left foot Pain in left ankle and joints of left foot [facility] 06/27/2024 Ambulatory [facility] 06/06/2024 Ambulatory [facility] 06/06/2024 Ambulatory Pain in left ankle and joints of left foot Pain in left ankle and joints of left foot [facility] 06/06/2024 Ambulatory Flat foot (pes planus) (acquired), left foot Flat foot (pes planus) (acquired), left foot [facility] 05/23/2024 Ambulatory Primary osteoarthritis, left ankle and foot Primary osteoarthritis, left ankle and foot [facility] 05/19/2024 Ambulatory Encounter for other preprocedural examination Encounter for other preprocedural examination [facility] 05/03/2024 Ambulatory Flat foot (pes planus) (acquired), left foot Flat foot (pes planus) (acquired), left foot [facility] 04/04/2024 Ambulatory [facility] 11/23/2023 Ambulatory Flat foot (pes planus) (acquired), left foot Flat foot (pes planus) (acquired), left foot [facility] 11/23/2023 Ambulatory Unilateral primary osteoarthritis, right knee Unilateral primary osteoarthritis, right knee [facility] 03/10/2023 Ambulatory [facility] [place] 02/19/2023 Care Team Organization Name Specialty Phone Email Start Date End Da te [facility] 11/23[facility]20232024 [facility] 10/22/2023 [facility] [place] [facility] 09/01/2024 [facility] 02/19/2023
--- OUTSIDE RECORDS SUMMARY | 2024-12-26 17:09 | XMS_ITS | Encounter Summary ---
Author Organization [facility] Address [address] [place] [address] Care Team Providers Care Demolitionist Name Role Phone Uzma Garrido MD Primary Care Provider [phone] Rocael Salamanca MD Unavailable Cresencio Zapata MD Unavailable [phone] Encounter Details Date Type Department Care Team ([facility] [place] st Contact Info) Description 11/07/2024 Scanned Document [facility] [place] [address] Cindy Ludwig [address] [place] [address] Social History Tobacco Use Types Packs/Day Years [...] more drinks on one occasion? Never 04/27/2024 Comments Unknown Sex and Gender Information Value Date Recorded Sex Assigned at Female 10/22/2023 11:34 AM EDT Legal Sex Female 11:32 AM EDT Gender Identity Female 10/22/2023 11:34 AM EDT Sexual Orientation Other 10/22/2023 11 :34 AM EDT documented as of this encounter Plan of Treatment Not on file documented as of this encounter Visit Diagnoses Not on filedocumented in this encounter Care Teams Demolitionist Relationship Specialty Start Date End Date Uzma Garrido MD [address] [place] [address] PCP - General Family Medicine 11/23/23 Rocael Salamanca MD [address] [place] [address] Surgery, Orthopedic 04/17/24 Cresencio Zapata MD [address] [place] [address] Medicine Hospitalist 04/27/24 documented as of this encounter
--- OUTSIDE RECORDS SUMMARY | 2024-12-26 17:09 | XMS_ITS | Patient Health Record ---
Author Organization [facility] Address [facility] [place], [place] [id number] Care Team Providers Care Fuel Manager Name Role Phone DUNIA UMAÑA Primary Care Provider [place], NURSING [facility] [phone] ALLERGIES No Known Allergies REASON FOR REFERRAL No Information MEDICATIONS Medication SIG (Take, Route, Frequency, Duration) Notes Start Date End Date Status CPAP . Active Tylenol Extra Strength 500 MG 1 tablet as needed Orally every 6 hrs Active CPAP Mask Active CeleBREX 200 MG 1 capsule with food Orally Once a day prn Active Multivitamin - 1 cap(s) orally QD-maint Active Calcium 500 + D3 500-5 MG-MCG 2 tablets with a meal Orally Once a day for 30 day(s) Active IMMUNIZATIONS Vaccine Route Administration Date Status Comme nts FLU- FLUVIRIN, PRE-FILLED SYRINGE 0.5 ml IM Intramuscular 01/25/2013 Administered FLU- FLUVIRIN, PRE-FILLED SYRINGE 0.5 ml IM Intramuscular 01/24/2014 Administered FLUAD Quadrivalent Unknown 01/06/2021 Administered FLUAD Quadrivalent Unknown 12/15/2022 Administered Influenza IM Intramuscular 12/31/2014 Administered Influenza, Fluzone HD 65+ IM Intramuscular 01/11/2017 Admi nistered Influenza, Fluzone HD 65+ IM Intramuscular 01/17/2018 Admi nistered Influenza, Fluzone HD 65+ IM Intramuscular 12/30/2021 Admi nistered Influenza, Fluzone HD 65+ Unknown 12/30/2023 Administer ed Moderna Bivalent Unknown 02/19/2022 Administered Moderna COVID-19 mRNA LNP-S PF Unknown 05/31/2020 Administered Moderna COVID-19 mRNA LNP-S PF Unknown 06/29/2020 Administered Moderna COVID-19 mRNA LNP-S PF Unknown 02/06/2021 Administered Moderna COVID-19 mRNA LNP-S PF Unknown 08/04/2021 Administered Moderna COVID-19 mRNA LNP-S PF IM Intramuscular 12/25/2022 Administered Moderna COVID-19 mRNA LNP-S PF Unknown 12/30/2023 Administered Moderna COVID-19 mRNA LNP-S PF Unknown 10/02/2024 Administered Pneumococcal (PPV23, adult) IM Intramuscular 01/24/2014 Administered Pneumococcal Prevnar 13 Unknown 01/06/2016 Pending Pneumococcal Prevnar 13 IM Intramuscular 01/06/2016 Admini stered [id number] IM Intramuscular 09/15/2022 Administered SHINGRIX HZV VACCINE IM Intramuscular 09/17/2021 Administe red SHINGRIX HZV VACCINE IM Intramuscular 12/30/2021 Administe red Zostavax (Shingles) IM Intramuscular 01/25/2013 Administer ed Influenza, Fluzone, High-Dose, 65+ Unknown 01/06/2016 Pending Influenza, Fluzone, High-Dose, 65+ Unknown 01/06/2016 Administered SOCIAL HISTORY Tobacco Use: Social History Observation [...] 2 Interpretation Negative Section Notes: never smoker never smoker never smoker never smoker never smoker never smoker never smoker never smoker never smoker never smoker never smoker never smoker never smoker never smoker PROBLEMS Problem Type ICD Code Onset Dates Problem Status W/U Status Risk SNOMED Code Notes Problem Unilateral primary osteoarthritis, right knee (M17.11) Active confirmed Primary osteoarthritis (015798552) Problem Hx of adenomatous colonic polyps (Z86.010) Active confirmed 550149454 Problem Obesity (BMI 30.0-34.9) (E66.9) Active confirmed 598506553865018 Problem Hypercalcemia (E83.52) Active confirmed 27373353 Problem Obstructive sleep apnea (adult) (pediatric) (G47.33) Active confirmed Obstruc tive sleep apnea syndrome (disorder) (58509960) Problem Aftercare following joint replacement surgery (Z47.1) Active confirmed History of musculoskeletal operation (570146428) Problem Presence of right artificial knee joint (Z96.651) Active confirmed Artificial knee joint present (730416642675) Problem Obstructive sleep apnea syndrome (G47.33) Active confirmed 15025213 Problem Primary osteoarthrit is of right knee (M17.11) Active confirmed 3050066738577 00 Problem Medicare annual wellness visit, subsequent (Z00.00) Active confirmed 117383905 Problem Left leg pain (M79.605) Active confirmed 144961066 Problem Family hx-breast malignancy (Z80.3) Active confirmed 858674838 Problem Low vitamin D level (E55.9) Active confirmed Vitamin D deficiency (96268482) Problem Bone disorder (M89.9) Active confirmed 25833140 Problem Post-menopausal (Z78.0) Active confirmed 44364770 Problem Pure hypercholesterolemia (E78.00) Active confirmed 656274949 Problem Prediabetes (R73.03) Active confirmed 7 65332473 Problem Status post total right knee replacement (Z96.651) Active confirmed 8236518876852 Problem 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 [address] [place] [address] [facility] [address] [place] [address] [facility]/29/[facility] [address] [place] [phone] 09/30/2024 DUNIA UMAÑA [facility] [address] [address] 10/03/[address] [address] 10/03/20[facility] physical exam Z00.00 ; Pure hypercholesterolemia E78.00 ; Prediabetes R73.03 ; Low vitamin D level E55.9 and Menopause Z78.[address] [address] 10/04/2024 [facility] Hypercalcemia E83.[address] [address] 10/09/2024 [facility] Encounter Date Diagnosis Assessment Notes Treatment Notes Treatment Clinical Notes Section Notes 10/04/2024 Hypercalcemia (ICD-1 0 - E83.52) 10/03/2024 Pure hypercholesterolemia (ICD-10 - E78.00) Previously slightly elevated. Will recheck today and follow-up on the results. Will modify management if required. 10/03/2024 Annual physical exam (ICD-10 - Z00.00) well female physical. Up to date on all appropriate screenings. Follow up in 1 year for next physical 10/03/2024 Prediabetes (ICD-10 - R73.03) 10/03/2024 Low vitamin D level (ICD-10 - E55.9) 10/03/2024 Menopause (ICD-10 - Z78.0) Patient given order to book on her own. PLAN OF TREATMENT Future Test Test Name Order Date 10/04/2024 Next Appt Details Provider Name:JUNIOR Sawyer, 10/23/2025 09:30:00 AM, [address] [place] [address], [phone], Provider Name:DUNIA WEST, 10/23/2025 10:00:00 AM, [address] [place] [address], [phone], Insurance Providers Payer Name Payer Address Payer Phone Subscriber Number Group Number Insured Name Patient Relationship to Insured Coverage Start Date Coverage End Date [employer] [place] [employer] [address] [place] [phone] [id number] ANGELA ARREOLA Self - patient is the insured 7 MEDICAL (GENERAL) HISTORY Medical History History ICD Code Sleep apnea elevated cholesterol h/o colon polyps obesity Health Care PROxy- [place] ux- Cell #[phone] prediabetes tendonitits wrist- left wrist Surgical History Surgery Date(Month/Year) right knee replacement 03/10/23 Left ankle fusion surgery 05/19/2024 lazar iridectomy lipoma removed from back shoulder surgery Right side 2011 Hospitalization History Reason Date(Month/Year) Above
--- OUTSIDE RECORDS SUMMARY | 2024-12-26 17:09 | XMS_ITS | Encounter Summary ---
Author Organization [facility] Address [address] [place] [address] Care Team Providers Care Kitchen Food Server Name Role Phone Uzma Garrido MD Primary Care Provider Rocael Salamanca MD Unavailable [phone] Cresencio Zapata MD Unavailable [phone] Encounter Details Date Type Department Care Team (Late st Contact Info) Description 10/18/2024 Scanned Document [facility] [address] [place], [place] [phone] Rocael Salamanca MD [address] [place] [address] Social History Tobacco Use Types Packs/Day Years [...] on filedocumented in this encounter Care Teams Kitchen Food Server Relationship Specialty Start Date End Date Uzma Garrido MD [address] [facility] [address] [place] [address] PCP - General Family Medicine 11/23/23 Rocael Salamanca MD [address] [place] [address] Surgery, Orthopedic 04/17/24 Cresencio Zapata MD [address] [place] [address] Medicine Hospitalist 04/27/24 documented as of this encounter
--- OUTSIDE RECORDS SUMMARY | 2024-12-26 17:09 | XMS_ITS | Clinical Summary ---
[facility] Address [address] [place] [address] Care Team Providers Care Doctor Assistant Name Role Phone Uzma Garrido MD Primary Care Provider [phone] Medications methocarbamoL (ROBAXIN) 750 mg tablet Take 1 [...] drink = 0.6 oz pur e alcohol) Comments Unknown Sex and Gender Information Value Date Recorded Sex Assigned at Not on file Legal Sex Female 4:44 PM EST Gender Identity Not on file Sexual Orientation Not on file Obstetrics History Plan of Treatment Health Maintenance Due Date Last Done Comments DTaP,Tdap,and Td Vaccines (1 - Tdap) 11/14/1967 Pneumococcal Vaccine: 50+ Ye ars (1 of 1 - PCV) 1998 Zoster Vaccines (1 of 2) 1998 Cholesterol Screening (Lipid Panel) 03/04/2022 Falls Risk Assessment 03/04/2022 Hepatitis C Screening 03/04/2022 Osteoporosis Screening (Bone Density Screening) 03/04/2022 Social Influencers of Health Screening 03/04/2022 RSV Immunization Adult Patie nts (1 - 1-dose 75+ series) 11/14/2023 Depression Screening 04/05/2024 COVID-19 Vaccine ( - 2023-2 5 season) 2024 Influenza Vaccine (#1) 2024 01/17/2018 HIB Vaccines Aged Out No longer [...] patient's age to complete this topic Meningococcal B Vaccine Aged Out No l onger eligible based on patient's age to complete this topic RSV Immunization Patients Un elli 20 months Aged Out No longer eligible b ased on patient's age to complete this topic Varicella Vaccines Aged Out No longer eligible based on patient's age to complete this topic Medical Devices Implanted Type Area Breaker Table Worker Device Identifier Shelf Expiration Date Model / Serial / Lot Knee Ptla Asym Tritanium 29x9 Stry-How [id number] Implanted:Qty: 1 on 03/10/2023 by Yunier Garcia MD Right: Knee [employer] [id number] 11/06/2027 5552-L-299 / / [id number] Knee Fem Bsplt W Pa [email or web address] [id number] Implanted:Qty: 1 on 03/10/2023 by Yunier Garcia MD Right: Knee [employer] [id number] 02/02/2028 5517-F-302 / / [id number] Knee Insrt Trthln Sz3 13mm Stry-How [id number] Implanted:Qty: 1 on 03/10/2023 by Yunier Garcia MD Right: Knee [employer] [id number] 11/19/2027 5531-G-[id number] / / [id number] Knee Bsplt Triathlon Ti Sz 3 Stry-How [id number] Implanted:Qty: 1 on 03/10/2023 by Yunier Garcia MD Right: Knee [employer] [id number] 12/24/2027 5536-B-300 / / [id number] Advance Directives Documents on File Type Date Recorded Patient Gang Bore Operator Expl anation Health Care Decision (hx) 03/10/2023 ADVANCE DIRECTIVE AN D LIVING WILL Care Teams Doctor Assistant Relationship Specialty Start Date End Date Uzma Garrido MD PCP - General 03/08/23
--- OUTSIDE RECORDS SUMMARY | 2024-12-26 17:09 | XMS_ITS | Clinical Summary ---
Author Organization [facility] Address [address] [place] [id number] Care Team Providers Care Retail Branch Manager Name Role Phone Uzma Garrido MD Primary Care Provider [phone] Rocael Salamanca MD Unavailable [phone] Cresencio Zapata MD Unavailable [phone] Allergies No known active allergies Medications SUPPLY DME MISCIndications:Pa in in left ankle and joints of left foot,Pes planovalgus, acquired, left Edna Brace Dx: LT PPV [facility] [address] [place] [address] 1 each 11/23/19 24 Active SUPPLY DME MISCIndications:Pe s planovalgus, acquired, left,Pain in left ankle and joints of left foot Walker with seat Rollabout knee scooter 1 each 04/04/20 24 Active SUPPLY DME MISCIndications:Pe s planovalgus, acquired, left,Pain in left ankle and joints of left foot Stair lift rental needed for 6weeks Dx: Non Weight bearing, s/p LT FT triple arthrodesis 1 each 04/04/20 24 Active acetaminophen (TYLENOL) 500 MG tablet Take 2 tablets (1,000 mg total) by mouth 3 times daily (every 8 hours). 03/11/20 23 Active Multiple Vitamin (multivitamin) capsule Take 1 capsule by mouth daily. Active Vitamin D3 (CHOLECALCIFEROL) 50 MCG (2000 UT) tablet Take 1 tablet (2,000 Units total) by mouth daily. Active Ovrbyk-Qyrupobye-C yaluron-MSM (GLUCOSAMINE CHONDROITIN JOINT PO) Take 1 tablet by mouth daily. Active oxyCODONE (ROXICODONE) 5 MG immediate release tabletIndications: Osteoarthritis of left foot, unspecified osteoarthritis type Take 1 tablet (5 mg total) by mouth 4 times daily (every 6 hours) as needed for severe pain. Max Daily Amount: 20 mg 28 tablet 05/19/19 25 Active acetaminophen (TYLENOL) 500 MG tabletIndications: Osteoarthritis of left foot, unspecified osteoarthritis type Take 1 tablet (500 mg total) by mouth 4 times daily (every 6 hours) as needed for mild pain or moderate pain. 84 tablet 05/19/19 25 Active methocarbamol (ROBAXIN) 500 MG tabletIndications: Osteoarthritis of left foot, unspecified osteoarthritis type Take 1 tablet (500 mg total) by mouth 2 (two) times a day as needed for muscle spasms. 14 tablet 05/19/19 25 Active aspirin enteric coated (ECOTRIN LOW STRENGTH) 81 MG EC tabletIndications: Osteoarthritis of left foot, unspecified osteoarthritis type Take 1 tablet (81 mg total) by mouth every 12 hours. 42 tablet 05/19/19 25 Active celeCOXIB (CeleBREX) 100 MG capsuleIndications :Pain in left ankle and joints of left foot,Pes planovalgus, acquired, left Take 1 capsule (100 mg total) by mouth 2 (two) times a day. 28 capsule 06/28/19 25 Active celeCOXIB (CeleBREX) 200 MG capsuleIndications :Pes planovalgus, acquired, left Take 1 capsule (200 mg total) by mouth 2 (two) times a day. 42 capsule 1 10/18/19 25 Active Active Problems Problem Noted Date Diagnosed Date Pre-diabetes 05/04/2024 Elevated blood pressure read ing in office without diagnosis of hypertension 05/04/2024 Obesity (BMI 30-39.9) 05/04/2024 BRANDO (obstructive sleep apnea) 04/26/2024 Assessment & Plan (04/26/2024 1:15 PM EST): Cpap Monitor per BRANDO perioperative guidelines. Encounters Date Type Department Care Team Description 11/07/2024 Scanned Document [facility] [place] [address] Cindy Ludwig 10/31/2024 2:00 PM EDT [facility] [address] [address] Rocael Salamanca MD Pes planovalgus, acquired, left (Primary Dx) 10/18/2024 Scanned Document [facility] [address] [id number] Rocael Salamanca MD 10/17/2024 1:40 PM EDT Ancillary Procedure [facility] [address] [address] 10/17/2024 1:30 PM EDT [facility] [address] [address] Rocael Salamanca MD Pain in left ankle and joints of left foot (Primary Dx); Pes planovalgus, acquired, left 10/17/2024 Refill [facility] [address] [address] Rocael Salamanca MD Pes planovalgus, acquired, left from Last 3 Months Social History Tobacco [...] Sign Reading Time Taken Comments Blood Pressure 134/64 05/19/2024 9:30 AM EST Pulse 75 05/19/2024 9:15 AM EST Temperature 36.4 C (97.5 F) 05/19/2024 9:00 AM EST Respiratory Rate 15 05/19/2024 9:30 AM EST Oxygen Saturation 98% 05/19/2024 9:30 AM EST Inhaled Oxygen Concentration - - Weight 86.5 kg (190 lb 9.6 oz) 05/19/2024 5:33 A M EST Height 156.2 cm (5' 1.5 ) 05/03/2024 10:17 AM ES T Body Mass Index 35.43 05/03/2024 10:17 AM EST Plan of Treatment Health Maintenance Due Date Last Done Comments Advance Care Planning 1950 Hepatitis C Virus Screening 1950 DTaP/Tdap/Td Vaccines (1 - Tdap) 11/14/1967 Pneumococcal Vaccines 50+ (1 of 1 - PCV) 1998 Zoster (Shingles) Vaccine (1 of 2) 1998 DXA Bone Density (Females,Ag es 65 and older) 2013 RSV Vaccine 60 years and old er and Patients (1 - 1-dose 75+ series) 11/14/2023 Influenza Vaccine 11/03/2024 12/30/2023 COVID-19 Vaccine (2 - 2024-2 6 season) 2024 12/25/2022 Hepatitis B Vaccines Aged Out No long er eligible based on patient's age to complete this topic Medical Devices Implanted Type Area Client Support Representative Device Identifier Shelf Expiration Date Model / Serial / Lot [id number] Filler Bone Void 5cc Dbx Algrf Putty Frzdr - [id number] Implanted:Qty : 1 on 05/19/2024 by Rocael Salamanca MD at [facility] Void Filler Left: Foot [employer] 12/06/2025 [id number] / [id number] 7.4x75mm Headless Comp Implanted:Qty : 1 on 05/19/2024 by Rocael Salamanca MD at [facility] Left: Foot [employer] 05/06/2029-0 75S / / [id number] Arcad 2.0 Staple Implanted:Qty : 1 on 05/19/2024 by Rocael Salamanca MD at [facility] Left: Foot [employer] 01/03/2031 [id number] / / [id number] 5.6 X 50mm Screw Implanted:Qty : 1 on 05/19/2024 by Rocael Salamanca MD at [facility] Left: Foot [employer] 07/04/2029 [id number] 50S / / [id number] Procedures Procedure Name Priority Date/Time Associated Diagnosis Comments CT FOOT W/O CONTRAST-LEFT Routine 10/24/2024 10:26 AM EDT Pain in left ankle and joints of left foot Pes planovalgus, acquired, left XR FOOT 3+ VIEWS-LEFT Routine 10/17/2024 1:44 PM EDT Pain in left ankle and joints of left foot from Last 3 Months Results * CT Foot w/o contrast-Left (10/24/2024 10:26 AM EDT) Anatomical Region Laterality Modality Foot Left Computed Tomogra phy 10/24/2024 10:3 0 AM EDT 10/24/2024 10:30 AM EDT Impressions 10/25/2024 9:59 AM EDT 1. Cannulated orthopedic screw through the posterior subtalar joint without evidence of hardware complication. Prominent osseous bridging across the posterior subtalar joint with near-complete fusion of the joint space. Small persistence of the joint space medially. 2. Orthopedic staple across the dorsal aspect of the talonavicular joint with a fracture through the proximal/talar prong of the staple. No perihardware lucency. 3. Additional cannulated orthopedic screw through the medial aspect of the talonavicular joint with perihardware lucency through the anteromedial aspect of the screw associated with the navicular measuring up to 0.3 cm. The screw extends approximately 0.5 cm peripheral to the navicular cortex. Findings could indicate a degree of hardware loosening. 4. Moderate calcaneocuboid osteoarthritis with additional degenerative arthritis scattered throughout the midfoot. 5. Anterior and lateral subcutaneous edema. Diffuse muscle atrophy. Electronically signed by: Kam Cruz MD 10/25/2024 09:59 AM EDT RP Thank you for referring your patient to us, Kam Cruz MD [id number] (Electronically Signed - 10/25/2024 09:59) Copy: UZMA GARRIDO MD [facility] [address] [place] [address] Narrative 10/25/2024 9:59 AM EDT EXAMINATION: CT FOOT WITHOUT CONTRAST, LEFT CLINICAL INFORMATION: Foot pain. Evaluate fluid, nonunion. COMPARISON: None available. TECHNIQUE: Multidetector volumetric images of the left foot were obtained without intravenous contrast. Multiplanar reformatted images in coronal and sagittal orientations were submitted. 3-D reconstructions were obtained on an independent workstation with concurrent physician supervision and provided for review. This CT examination was performed using dose optimization techniques as appropriate, variously including the following: *Automated exposure control *Adjustment of mA and/or kV according to patient size (this includes techniques or standardized protocols for targeted exams where dose is matched to indication/reason for exam; i.e. extremities or head) *Use of iterative reconstruction technique DLP: 256.41 mGy-cm. FINDINGS: Cannulated orthopedic screw through the posterior subtalar joint extending through the calcaneus and talus. No hardware fracture or perihardware lucency. There is prominent osseous bridging across the posterior subtalar joint with near- complete fusion of the joint space. Small persistence of the joint space medially. Fusion involves greater than 90 percent of the joint surface. Orthopedic staple across the dorsal aspect of the talonavicular joint. There is a fracture through the proximal/talar prong of the staple with apex anterior angulation and step-off measuring up to 0.2 cm in AP dimension. No perihardware lucency. Additional cannulated orthopedic screw through the medial aspect of the talonavicular joint without hardware fracture. There is perihardware lucency at the anteromedial aspect of the screw associated with the navicular measuring up to 0.3 cm. The screw extends approximately 0.5 cm peripheral to the navicular cortex. Findings could indicate a degree of hardware loosening. There is significant talonavicular joint space narrowing with bony remodeling, subchondral sclerosis, and subchondral cystic change. There are areas of central osseous bridging involving approximately 30 percent of the articular surface. Moderate calcaneocuboid joint space narrowing with small marginal osteophytes. Additional degenerative arthritis scattered throughout the midfoot. No acute fracture or dislocation. The ankle mortise is maintained. No talar osteoid chondral lesion. Small dorsal calcaneal spur. Anterior and lateral subcutaneous edema. No soft tissue mass or fluid collection. Diffuse muscle atrophy. The visualized flexor and extensor tendons are grossly intact, however, evaluation is limited on CT examination. Procedure Note Kam Cruz MD - 10/25/2024 EXAMINATION: CT FOOT WITHOUT CONTRAST, LEFT CLINICAL INFORMATION: Foot pain. Evaluate fluid, nonunion. COMPARISON: None available. TECHNIQUE: Multidetector volumetric images of the left foot were obtained withoutintravenous contrast. Multiplanar reformatted images in coronal andsagittal orientations were submitted. 3-D reconstructions were obtained endy independent workstation with concurrent physician supervision and provided for review. This CT examination was performed using dose optimization techniques asappropriate, variously including the following: *Automated exposure control *Adjustment of mA and/or kV according to patient size (this includestechniques or standardized protocols for targeted exams where dose ismatched to indication/reason for exam; i.e. extremities or head) *Use of iterative reconstruction technique DLP: 256.41 mGy-cm. FINDINGS: Cannulated orthopedic screw through the posterior subtalar joint extendingthrough the calcaneus and talus. No hardware fracture or perihardwarelucency. There is prominent osseous bridging across the posterior subtalarjoint with near-complete fusion of the joint space. Small persistence of the joint space medially. Fusioninvolves greater than 90 percent of the joint surface. Orthopedic staple across the dorsal aspect of the talonavicular joint.There is a fracture through the proximal/talar prong of the staple withapex anterior angulation and step-off measuring up to 0.2 cm in APdimension. No perihardware lucency. Additional cannulated orthopedic screw through the medial aspect of thetalonavicular joint without hardware fracture. There is perihardwarelucency at the anteromedial aspect of the screw associated with thenavicular measuring up to 0.3 cm. The screw extends approximately 0.5 cm peripheral to the navicular cortex. Findingscould indicate a degree of hardware loosening. There is significanttalonavicular joint space narrowing with bony remodeling, subchondralsclerosis, and subchondral cystic change. There are areas of central osseous bridging involving approximately 30percent of the articular surface. Moderate calcaneocuboid joint space narrowing with small marginalosteophytes. Additional degenerative arthritis scattered throughout themidfoot. No acute fracture or dislocation. The ankle mortise ismaintained. No talar osteoid chondral lesion. Small dorsal calcaneal spur. Anterior and lateral subcutaneous edema. No soft tissue mass or fluidcollection. Diffuse muscle atrophy. The visualized flexor and extensortendons are grossly intact, however, evaluation is limited on CTexamination. IMPRESSION: 1. Cannulated orthopedic screw through the posterior subtalar jointwithout evidence of hardware complication. Prominent osseous bridgingacross the posterior subtalar joint with near-complete fusion of the jointspace. Small persistence of the joint space medially. 2. Orthopedic staple across the dorsal aspect of the talonavicular jointwith a fracture through the proximal/talar prong of the staple. Noperihardware lucency. 3. Additional cannulated orthopedic screw through the medial aspect of thetalonavicular joint with perihardware lucency through the anteromedialaspect of the screw associated with the navicular measuring up to 0.3 cm.The screw extends approximately 0.5 cm peripheral to the navicular cortex. Findings could indicate adegree of hardware loosening. 4. Moderate calcaneocuboid osteoarthritis with additional degenerativearthritis scattered throughout the midfoot. 5. Anterior and lateral subcutaneous edema. Diffuse muscle atrophy. Electronically signed by: Kam Cruz MD 10/25/2024 09:59 AM EDT RPWorkstation: [id number] Thank you for referring your patient to us, Kam Cruz MD [id number] (Electronically Signed - 10/25/2024 09:59) Copy: UZMA GARRIDO MD [facility] [address] [place] [address] us Rocael Salamanca MD IMG CT ORDERABLES Final Resul t * XR Foot 3+ views-Left (10/17/2024 1:44 PM EDT) Narrative OA - 10/17/2024 1:44 PM EDT This exam was performed in office at [facility] and images reviewed by orthopedic provider. Any findings are documented within ambulatory encounter note on date of service. Rocael Salmaanca MD IMG DIAGNOSTIC IMAGING ORDERA BLES Final Result OA from Last 3 Months Insurance MEDICARE OUT OF NETWORK MEDICARE OUT OF NETWORK Advance Directives * Full Code (Latest Code Status on File) Date Activated Date Inactivated Comments 05/19/2024 6:04 AM Care Teams Retail Branch Manager Relationship Specialty Start Date End Date Uzma Garrido MD [address] [address] PCP - General Family Medicine 11/23/23 Rocael Salamanca MD [address] [place] [address] Surgery, Orthopedic 04/17/24 Cresencio Zapata MD [address] [place] [address] Medicine Hospitalist 04/27/24
--- OUTSIDE RECORDS SUMMARY | 2024-12-26 17:09 | XMS_ITS | Clinical Summary ---
Author Organization [facility] Address [address] [place] [address] Care Team Providers Care Irrigating Pump Operator Name Role Phone Uzma Garrido MD Primary [...] 79 03/12/2023 9:00 AM EST Temperature 37.6 C (99.7 F) 03/12/2023 9:00 AM EST Respiratory Rate 16 03/12/2023 9:00 AM EST [...] Tdap / Td (1 - Tdap) 11/14/1967 Shingrix-Zoster Vaccine (1 of 2) 1998 Fall Risk Assessment 2013 Osteoporosis Screening (DEXA Scan) 2013 Pneumococcal Vaccine (1 of 1 - PCV) 2013 RSV Adult > 60+ Yrs or Pregn ant (1 - 1-dose 75+ series) 11/14/2023 Influenza Vaccine (#1) 2024 01/17/2018 Hepatitis B Vaccines Aged Out No long er eligible based on patient's age to complete this topic RSV Ped < 20 months Aged Out No longe r eligible based on patient's age to complete this topic Medical Devices Implanted Type Area Deliverer Pharmacy Device Identifier Shelf Expiration Date Model / Serial / Lot Knee Ptla Asym Tritanium 29x9 Stry-Howm [id number] - [id number] Implanted:Qty: 1 on 03/10/2023 by Yunier Garcia MD at [facility] and [facility] Right: Knee [employer] [id number] 11/06/2027 5552-L-299 / / [id number] Knee Fem Bsplt W Pa Stry-Howm [id number] - [id number] Implanted:Qty: 1 on 03/10/2023 by Yunier Garcia MD at [facility] and [facility] Right: Knee [employer] [id number] 02/02/2028 5517-F-302 / / [id number] Knee Insrt Trthln Sz3 13mm Stry-How [id number] - [id number] Implanted:Qty: 1 on 03/10/2023 by Yunier Garcia MD at [facility] and [facility] Right: [employer] [id number] 11/19/2027 5531-G-[id number] / / [id number] Knee Bsplt Triathlon Ti Sz 3 Stry-How [id number] - [id number] Implanted:Qty: 1 on 03/10/2023 by Yunier Garcia MD at [facility] and [facility] Right: Knee [employer] [id number] 12/24/2027 5536-B-300 / / [id number] Advance Directives For more information, please contact: [phone] Documents on File Type Date Recorded Patient Manufacturing Technology Professor Expl anation Advance Directive and Living Will [...] will or healthcare instructions . Care Teams Irrigating Pump Operator Relationship Specialty Start Date End Date Uzma Garrido MD [address] [place], [place] [id number] PCP - General Family Medicine 03/08/23
== END 2024-12-26 14:51 | disposition home or self-care (01) ==
LOC: HO.HPS 13:55
PROVIDERS: PCP Family Medicine; Visit Provider Hospitalist
DX: G47.33 Obstructive sleep apnea (adult) (pediatric) (principal); Z99.89 Dependence on other enabling machines and devices; R68.2 Dry mouth, unspecified
CPT/HCPCS: 99214; G2211

== ENCOUNTER → 2024-12-26 13:54 | Outpatient (BNVA) | payer MEDICARE, SELFPAY | PROVIDERS: PCP Family Medicine; Visit Provider Hospitalist | DX: G47.33 Obstructive sleep apnea (adult) (pediatric) (principal); R68.2 Dry mouth, unspecified; Z99.89 Dependence on other enabling machines and devices | CPT/HCPCS: 99212 ==